=== PATIENT | female | born 1945 | race Caucasian/White ===

== ENCOUNTER 2018-12-09 07:34 | Day surgery (SDC) | payer MEDICARE ==
[~2018-12-09] VITALS: Ht 154.9 cm; Wt 107.0 kg
[~2018-12-09 07:34] MED LIST: ACET650T12 PO; COUM2.5T17 PO; FURO20TA2 PO; LOSARTAN/HCTZ PO; ULTR50TA8 PO; VALS160T3 PO
[2018-12-09] MEDS ORDERED: ceFAZolin 1GM INJ (J0690 PER 500MG) As Ordered ONE (08:12)
[2018-12-09] MEDS ORDERED: LIDOCAINE PRES-FREE 2% 10ML AMP As Ordered ONE (08:44)
[2018-12-09] MEDS ORDERED: LIDOCAINE W/EPINEPHRINE 1% 20ML VIAL As Ordered ONE (08:44)
[2018-12-09] MEDS ORDERED: BACITRACIN OINT 30GM As Ordered ONE (08:44)
[2018-12-09] MEDS ORDERED: POVIDONE-IODINE 5% OPHTH PREP SOL 30ML As Ordered ONE (08:46)
[2018-12-09] MEDS ORDERED: LIDOCAINE 2% W/EPIN INJ 20ML **PRES FREE As Ordered ONE (09:03)
[2018-12-09] MEDS ORDERED: PROPOFOL 200 MG/20 ML VIAL As Ordered ONE (09:34)
[2018-12-09] MEDS ORDERED: LIDOCAINE 2% INJ 100 MG/5 ML SDV (FOR ANES.) As Ordered ONE (09:34)
[2018-12-09] MEDS ORDERED: fentaNYL 100 MCG/2 ML INJECTION (J3010) As Ordered ONE (09:34)
[2018-12-09] MEDS ORDERED: MIDAZOLAM INJ 2 MG/2 ML VIAL (J2250) As Ordered ONE (09:34)
--- NOTE | 2018-12-09 10:09 | POST-OPPD ---
Postoperative Procedure Note Date Of Procedure: Dec 09, 2018 PREOPERATIVE DIAGNOSIS: Forehead malignant lesion POSTOPERATIVE DIAGNOSIS: same FINDINGS: scar upper middle forehead PROCEDURE: Excision malignant lesion upper middle forehead SURGEON: Dr Sullivan ANESTHESIA: local with sedation SPECIMENS: forehead lesion FS ESTIMATED BLOOD LOSS: 1 cc REPLACED: none DRAINS: none COMPLICATIONS: none POSTOPERATIVE CONDITION: stable LINA SULLIVAN DO Dec 09, 2018 10:09
[2018-12-09 10:10] VITALS: BP 134/63
[2018-12-09] MEDS ORDERED: NORCO, ANEXSIA 5/325MG TABLET (HYDROcodone/ACETAMINOPHEN) PO PRN (10:45)
[2018-12-09] MEDS ORDERED: METOCLOPRAMIDE INJ 10MG/2ML VIAL (J2765) IV PRN (10:45)
[2018-12-09] MEDS ORDERED: fentaNYL 100 MCG/2 ML INJECTION (J3010) IV PRN (10:45)
[2018-12-09] MEDS ORDERED: ONDANSETRON 4MG/2ML VIAL (J2405) IV PRN (10:45)
[2018-12-09] MEDS ORDERED: LR 1,000 ML IV SCH (10:45)
--- NOTE | 2018-12-09 15:26 | RO ---
DATE OF OPERATION: 12/09/2018 PREOPERATIVE DIAGNOSIS: Forehead malignant lesion. POSTOPERATIVE DIAGNOSIS: Forehead malignant lesion. PROCEDURE: Excision malignant lesion upper middle forehead. ATTENDING SURGEON: Giselle Colbert DO ANESTHESIA: Local with sedation. SPECIMEN: Forehead lesion was sent frozen section. BLOOD LOSS: 1 mL. No replacements, drains, or complication. DESCRIPTION OF PROCEDURE: This is a 73-year-old female who came to our office status post a biopsy of the lesion that she had for a very long time. The lesion is in the upper middle of the forehead right along the hair-bearing area. Lesion showing basal cell carcinoma with nodularity, nodular type. She scheduled for formal excision. All risks and benefits and alternatives discussed with the patient, and she is ready to proceed. Preoperatively, the lesions measures 0.5 x 0.7 cm. We outlined the lesion. She was brought to the operating room, placed in supine position. Preoperative antibiotics were given. Compression stockings placed on the lower calves. She was prepped and draped in the usual sterile fashion. We started our procedure by infiltrating the area with 2% lidocaine with epinephrine. When the anesthetic took effect, the elliptical incision was carried out encapsulating the whole lesion with 2 mm margins as well. The lesion was marked at 12 o'clock with a nylon suture and sent to pathology for frozen section. Frozen section came back with clear margins, and we started our closure by undermining the edges of the wound in all directions, and then the wound was closed with interrupted #5-0 Monocryl sutures and #6-0 plain dermal suture. Steri-Strips were applied. Total length of the wound is 2 cm. The patient tolerated procedure well, and she was transferred to recovery room in stable condition completely awake. [facility]
== END 2018-12-09 10:25 | disposition home or self-care (01) ==
LOC: M SDC 07:34
PROVIDERS: ATTEND Plastic Surgery Surgery of the Hand
DX: C44.319 Basal cell carcinoma of skin of other parts of face (principal); I10 Essential (primary) hypertension; J44.9 Chronic obstructive pulmonary disease, unspecified; Z88.5 Allergy status to narcotic agent; Z88.6 Allergy status to analgesic agent; Z79.899 Other long term (current) drug therapy; Z72.0 Tobacco use; Z90.710 Acquired absence of both cervix and uterus; Z98.51 Tubal ligation status; Z96.651 Presence of right artificial knee joint
CPT/HCPCS: 11642; 88305; 88331; J2250; J3010